=== PATIENT | female | born 1960 | race Caucasian/White ===

== ENCOUNTER 2017-11-28 17:18 | Emergency (ER) | payer MEDICARE, OTHER, MEDICAID ==
[~2017-11-28] VITALS: Ht 172.7 cm; Wt 82.4 kg
[~2017-11-28 17:18] MED LIST: ACTEMRA80 MG/4 ML; CALCIUM 600MG+D1 TAB PO; CYMBALTA; CYMBALTA 20MG20 MG; CYMBALTA 30MG30 MG PO; DESYREL 50MG50 MG PO; DETROL LA 2 MG2 MG PO; DETROL LA2 MG PO; DITROPAN 5MG TAB5 MG PO; ETHAMBUTOL HYD400 MG PO; EVISTA 60MG60 MG/TAB PO; IMITREX50 MG PO; LIDODERM 5% PATC1 EA TP; MAXALT10 MG PO; NEURONTIN300 MG/CAP PO; NORCO 325 MG-51 TAB PO; ORENCIA250 MG IV; PERCOCET 500 MG1 TAB PO; PREDNISONE 5MG5 MG PO; PREDNISONE10 M1 PO; PREDNISONE20 MG PO; PROTONIX 40MG T40 MG PO; RIFADIN300 MG PO; TYLENOL 500MG500 MG PO; ULTRAM 50MG TAB50 MG PO; VITAMIN D1000 IU PO; ZANAFLEX2 MG PO; ZITHROMAX500 M2 PO
[2017-11-28 17:23] VITALS: TEMP 98.1
[2017-11-28] MEDS ORDERED: TYLENOL 500MG500 MG PO (17:37)
[2017-11-28] MEDS ORDERED: BUSPAR5 MG PO (17:38)
[2017-11-28] MEDS ORDERED: FOSAMAX 70MG TA70 MG PO (17:41)
[2017-11-28] MEDS ORDERED: CYMBALTA 30MG30 MG PO (17:42)
[2017-11-28] MEDS ORDERED: ATARAX50 MG PO (17:42)
[2017-11-28] MEDS ORDERED: MASON NATURAL2000 IU PO (17:42)
[2017-11-28] MEDS ORDERED: ZANAFLEX 4MG TAB4 MG PO (17:44)
[2017-11-28] MEDS ORDERED: DESYREL DIVIDO150 M1 PO (17:44)
[2017-11-28] MEDS ORDERED: PROAIR HFA0.09 MG/AC IH (17:45)
[2017-11-28 17:46] LABS: BASO % 0.6 % (0.0-2.0); EOS # 0.2 (0.0-0.7); EOS % 3.4 % (0-4.0); GRAN # 2.7 (1.4-6.5); GRAN % 50.2 % (42.2-75.2); HEMOGLOBIN 13.2 g/dl (12.5-16.0); LYMPH # 1.9 (1.2-3.4); LYMPH % 34.9 % (20.0-51.0); MEAN CELL VOLUME 93 fl (80.0-100.0); MEAN CORPUSCULAR HEMOGLOBIN 32 pg (27.0-31.0); MEAN CORPUSCULAR HGB CONC 34 g/dl (33.0-37.0); MONO # 0.6 (0.1-0.6); MONO % 10.7 % (1.7-9.3); PLATELET COUNT 313 K/mm3 (130-400); RED BLOOD COUNT 4.18 M/mm3 (4.10-5.30)
[2017-11-28 17:53] LABS: COLLECTION METHOD CLEAN CATCH
[2017-11-28 17:53] LABS: ALANINE AMINOTRANSFERASE 46 U/L (9-52); ALBUMIN 4.8 gm/dL (3.5-5.0); ALKALINE PHOSPHATASE 66 U/L (50-136); ANION GAP 10 mmol/L (7-16); AST,SGOT 32 U/L (15-37); BILIRUBIN,TOTAL 0.5 mg/dL (0.0-1.0); BLOOD UREA NITROGEN 15 mg/dL (7-17); CALCIUM 9.9 mg/dL (8.4-10.2); CARBON DIOXIDE 23 mmol/L (22-30); CHLORIDE 105 mmol/L (98-107); CREATININE, serum 0.81 mg/dL (0.52-1.25); GLUCOSE 96 mg/dL (74-106); POTASSIUM 4.2 mmol/L (3.4-5.0); SODIUM 139 mmol/L (137-145); TOTAL PROTEIN 7.5 gm/dL (6.4-8.2)
[2017-11-28 17:57] LABS: PROTHROMBIN TIME 11.5 SECONDS (9.7-12.8)
[2017-11-28 17:59] LABS: MUCOUS Present /lpf; PH 5 (5-8); SQUAMOUS EPITHELIAL 0-2 /hpf; URINE APPEARANCE Clear; URINE BACTERIA None Seen /hpf; URINE BILIRUBIN Negative (NEGATIVE); URINE BLOOD Negative (NEGATIVE); URINE COLOR Yellow; URINE GLUCOSE Negative (NEGATIVE); URINE KETONE Negative (NEGATIVE); URINE LEUKOCYTE ESTERASE Negative (NEGATIVE); URINE NITRATE Negative (NEGATIVE); URINE PROTEIN(semi-quant) Negative (NEGATIVE); URINE RBC 0-2 /hpf; URINE UROBILINOGEN Negative (NEGATIVE)
[2017-11-28 18:01] LABS: PARTIAL THROMBOPLASTIN TIME 31.2 SECONDS (26.0-37.0)
[2017-11-28 18:18] LABS: TROPONIN-I < 0.012 ng/mL (0.000-0.034)
[2017-11-28 18:42] LABS: INFLUENZA A NEGATIVE; INFLUENZA B NEGATIVE
[2017-11-28] MEDS ORDERED: ZITHROMAX Z PA250 MG PO (20:14)
[2017-11-28] MEDS ORDERED: CHERATUSSIN AC120 ML PO (20:34)
[2017-11-28 20:35] VITALS: BP 102/61; PULSE 71
== END 2017-11-28 20:41 | disposition home or self-care (01) ==
LOC: COL.ER 17:18
PROVIDERS: Family Medicine
DX: J40 Bronchitis, not specified as acute or chronic (principal); A31.2 Disseminated mycobacterium avium-intracellulare complex (DMAC); M06.9 Rheumatoid arthritis, unspecified
CPT/HCPCS: J7030; J7050; Q9967

== ENCOUNTER → 2018-09-05 | Outpatient (CLI) | payer MEDICARE, MEDICAID ==
[~2018-09-05] MED LIST changes: +ATARAX50 MG PO; +BUSPAR5 MG PO; +CHERATUSSIN AC120 ML PO; +DESYREL DIVIDO150 M1 PO; +FOSAMAX 70MG TA70 MG PO; +MASON NATURAL2000 IU PO; +PROAIR HFA0.09 MG/AC IH; +ZANAFLEX 4MG TAB4 MG PO; +ZITHROMAX Z PA250 MG PO
== END ==
LOC: MC.RAD 14:13
DX: Z12.31 Encounter for screening mammogram for malignant neoplasm of breast (principal)

== ENCOUNTER 2019-01-30 10:07 | Emergency (ER) | payer MEDICARE, MEDICAID ==
[~2019-01-30] VITALS: Ht 172.7 cm; Wt 83.2 kg
[2019-01-30 10:21] VITALS: TEMP 98.3
[2019-01-30 11:28] LABS: COLLECTION METHOD CLEAN CATCH
[2019-01-30 11:35] LABS: BASO % 0.3 % (0.0-2.0); EOS # 0.2 (0.0-0.7); EOS % 1.4 % (0-4.0); GRAN # 8.7 (1.4-6.5); GRAN % 74.6 % (42.2-75.2); HEMATOCRIT 41.4 % (37.0-47.0); HEMOGLOBIN 13.8 g/dl (12.5-16.0); LYMPH # 1.9 (1.2-3.4); LYMPH % 16.3 % (20.0-51.0); MEAN CELL VOLUME 97 fl (80.0-100.0); MEAN CORPUSCULAR HEMOGLOBIN 32 pg (27.0-31.0); MEAN CORPUSCULAR HGB CONC 33 g/dl (33.0-37.0); MONO # 0.8 (0.1-0.6); PLATELET COUNT 226 K/mm3 (130-400); RED BLOOD COUNT 4.29 M/mm3 (4.10-5.30); REDCELL DISTRIBUTION WIDTH-CV 12.1 % (11.5-14.5)
[2019-01-30 11:53] LABS: ALANINE AMINOTRANSFERASE 15 U/L (9-52); ALKALINE PHOSPHATASE 37 U/L (50-136); ANION GAP 6 mmol/L (7-16); AST,SGOT 16 U/L (15-37); BILIRUBIN,TOTAL 0.5 mg/dL (0.0-1.0); BLOOD UREA NITROGEN 16 mg/dL (7-17); CALCIUM 9.2 mg/dL (8.4-10.2); CARBON DIOXIDE 24 mmol/L (22-30); CHLORIDE 107 mmol/L (98-107); GLUCOSE 89 mg/dL (74-106); LIPASE 87 U/L (23-300); POTASSIUM 3.7 mmol/L (3.4-5.0); SODIUM 137 mmol/L (137-145); TOTAL PROTEIN 6.7 gm/dL (6.4-8.2)
[2019-01-30 11:56] LABS: MUCOUS Present /lpf; PH 5 (5-8); SQUAMOUS EPITHELIAL 0-2 /hpf; URINE APPEARANCE Hazy; URINE BACTERIA None Seen /hpf; URINE BILIRUBIN Negative (NEGATIVE); URINE BLOOD Negative (NEGATIVE); URINE COLOR Yellow; URINE GLUCOSE Negative (NEGATIVE); URINE KETONE Negative (NEGATIVE); URINE LEUKOCYTE ESTERASE Negative (NEGATIVE); URINE NITRATE Negative (NEGATIVE); URINE PROTEIN(semi-quant) Negative (NEGATIVE); URINE UROBILINOGEN Negative (NEGATIVE)
[2019-01-30 11:57] LABS: C-REACTIVE PROTEIN < 0.5 mg/dL (0.0-0.9)
[2019-01-30] MEDS ORDERED: CIPRO 500MG TA500 MG PO (13:05)
[2019-01-30] MEDS ORDERED: ZOFRAN ODT4 MG PO (13:05)
[2019-01-30] MEDS ORDERED: NORCO 325 MG-51 TAB PO (13:05)
[2019-01-30] MEDS ORDERED: FLAGYL500 MG PO (13:05)
[2019-01-30 14:23] VITALS: BP 100/66; PULSE 74
== END 2019-01-30 14:25 | disposition home or self-care (01) ==
LOC: COL.ER 10:07
PROVIDERS: Emergency Medicine
DX: K57.92 Diverticulitis of intestine, part unspecified, without perforation or abscess without bleeding (principal); M06.9 Rheumatoid arthritis, unspecified; Z79.899 Other long term (current) drug therapy; Z90.710 Acquired absence of both cervix and uterus
CPT/HCPCS: J2270; J2405; J7030; Q9967

== ENCOUNTER 2019-09-07 13:29 | Emergency (ER) | payer MEDICARE, MEDICAID ==
[~2019-09-07] VITALS: Ht 172.7 cm; Wt 79.5 kg
[~2019-09-07 13:29] MED LIST changes: +CIPRO 500MG TA500 MG PO; +FLAGYL500 MG PO; +ZOFRAN ODT4 MG PO
[2019-09-07 13:36] VITALS: BP 120/60; TEMP 98.4
[2019-09-07] MEDS ORDERED: VALTREX1 GM PO (14:58)
[2019-09-07] MEDS ORDERED: NORCO 325 MG-7.1 TAB PO (14:59)
[2019-09-07 15:08] VITALS: PULSE 106
== END 2019-09-07 15:08 | disposition home or self-care (01) ==
LOC: COL.ER 13:29
DX: B02.9 Zoster without complications (principal); G43.909 Migraine, unspecified, not intractable, without status migrainosus; M06.9 Rheumatoid arthritis, unspecified; J45.909 Unspecified asthma, uncomplicated; Z90.710 Acquired absence of both cervix and uterus
CPT/HCPCS: J1885

== ENCOUNTER 2022-04-08 07:43 | Day surgery (SDC) | payer MEDICARE, MEDICAID ==
[~2022-04-08] VITALS: Ht 172.7 cm; Wt 160.8 kg
[~2022-04-08 07:43] MED LIST changes: +BENTYL 10MG10 MG/CAP PO; +NORCO 325 MG-7.1 TAB PO; +VALTREX1 GM PO
[2022-04-08 08:41] VITALS: BP 106/73; PULSE 74; TEMP 97.7
[2022-04-08 09:30] VITALS: BP 110/69; PULSE 88; TEMP 97.9
--- NOTE | 2022-04-08 09:30 | NUR ---
Pt arrived from procedure and was settled by Ene WILSON. Monitors applied and VSS. Pt served snack and beverage per request. Pt denies nausea. No vomiting. Pt oriented to room and call jiménez, within reach. Verbal report obtained.
[2022-04-08 09:45] VITALS: BP 107/69; PULSE 73
--- NOTE | 2022-04-08 09:45 | NUR ---
VSS. Pt expressed desire to be discharged. Call jiménez remains within reach.
--- NOTE | 2022-04-08 09:50 | NUR ---
Pt states nausea, however she states it is a chronic issue that typically present in the AM. IV Zofran administered. Pt verbalized understanding the side effects prior to admin.
[2022-04-08 10:00] VITALS: BP 120/80; PULSE 77
--- NOTE | 2022-04-08 10:00 | NUR ---
VSS. Pt expressed desire to be discharged. IV discontinued. Catheter tip intact. Pressure bandage applied. NO redness or swelling noted. DC instructions and educational material reviewed with the pt, who verbalized understanding and signed the related paperwork. Pt denied needing assistance changing into personal clothes. Call jiménez remains within reach.
--- NOTE | 2022-04-08 10:10 | NUR ---
Pt dismissed from endo via wheelchair to the pt entrence by Catrachita WILSON. Pt has her DC packet and personal belongings in hand, and was transferred into the care of her who is present to drive private car.
== END 2022-04-08 10:11 | disposition home or self-care (01) ==
LOC: SDCO 07:43
DX: K29.51 Unspecified chronic gastritis with bleeding (principal); J84.9 Interstitial pulmonary disease, unspecified; D84.9 Immunodeficiency, unspecified; R63.0 Anorexia; Z87.891 Personal history of nicotine dependence; Z79.899 Other long term (current) drug therapy
CPT/HCPCS: J2405; J2704; J7120